=== PATIENT | male | born 1955 | race Two or more races ===

== ENCOUNTER 2022-06-06 01:50 | Emergency (ER) | payer MEDICARE, OTHER ==
[~2022-06-06] VITALS: Ht 172.7 cm; Wt 90.7 kg
--- NOTE | 2022-06-06 02:02 | NUR ---
c/o slip and fall with knee pain. to bed 7. connected to monitor. Addendum: 06/06/22 at 0203 by SARAHY bed 4.
--- NOTE | 2022-06-06 02:06 | NUR ---
EDUCATIONAL PSYCHOLOGY PROFESSOR AT BEDSIDE
--- NOTE | 2022-06-06 02:09 | NUR ---
xray at bedside
--- NOTE | 2022-06-06 03:31 | NUR ---
emt at bed side to apply knee immobilizer and crutches
[2022-06-06 04:20] VITALS: BP 158/86
--- NOTE | 2022-06-06 04:31 | NUR ---
Patient discharged to home in stable condition. Written and verbal after care instructions given. Patient verbalizes understanding of instruction. at bedisde to take patient home. left knee in immobilizer, and bilateral crutches in use.
== END 2022-06-06 04:41 | disposition home or self-care (01) ==
LOC: ER 01:52
DX: S76.112A Strain of left quadriceps muscle, fascia and tendon, initial encounter (principal); I10 Essential (primary) hypertension; X50.1XXA Overexertion from prolonged static or awkward postures, initial encounter; Y93.89 Activity, other specified; Y92.89 Other specified places as the place of occurrence of the external cause; Y99.8 Other external cause status
CPT/HCPCS: 73564-TC